=== PATIENT | female | born 1970 | race Caucasian/White ===

== ENCOUNTER → 2017-06-09 | Outpatient (CLI) | payer BC ==
--- NOTE | 2017-06-12 08:41 | MM ---
Reason for exam: screening (asymptomatic). Last mammogram was performed 4 years and 1 month ago. History: Taking hormonal contraceptives for 17 years 6 months beginning at age 16. Physical Findings: A clinical breast exam by your physician is recommended on an annual basis and results should be correlated with mammographic findings. MG 3D Screening Mammo W/Cad Bilateral CC and MLO view(s) were taken. Prior study comparison: May 16, 2013, bilateral digital screening mammo w/CAD. April 25, 2012, CAD bilateral diagnostic mammogram. There are scattered fibroglandular densities. No significant changes when compared with prior studies. ASSESSMENT: Benign, BI-RAD 2 RECOMMENDATION: Routine screening mammogram of both breasts in 1 year.
== END ==
LOC: RADMAMWWP 13:20
PROVIDERS: ATTEND Family Medicine
DX: Z12.31 Encounter for screening mammogram for malignant neoplasm of breast (principal)
CPT/HCPCS: 77063; G0202

== ENCOUNTER → 2017-08-24 | Outpatient (CLI) | payer BC ==
--- NOTE | 2017-08-24 16:45 | CT ---
EXAMINATION TYPE: CT brain wo con DATE OF EXAM: 08/24/2017 COMPARISON: NONE HISTORY: Patient complains of episodes of confusion and disorientation. CT DLP: 737.3 mGycm. Automated Exposure Control for Dose Reduction was Utilized. TECHNIQUE: CT scan of the head is performed without contrast. Ventricles and sulci appear normal. There is no mass effect nor midline shift. There is no sign of in tracranial hemorrhage. The calvarium is intact. CONCLUSION: Negative CT scan of the brain.
== END | disposition home or self-care (01) ==
LOC: RADCTMAIN 16:21
PROVIDERS: ATTEND Physician Assistant
DX: R41.0 Disorientation, unspecified (principal)
CPT/HCPCS: 70450

== ENCOUNTER 2021-11-12 10:43 | Day surgery (SDC) | payer BC, MEDICAID ==
[2021-11-10 15:14] VITALS: BMI 32.5
[~2021-11-12 10:43] MED LIST: LACTATED RINGERS 1,000 ML IV SCH
[2021-11-12 11:03] VITALS: TEMP 97.8
[2021-11-12] MEDS ORDERED: ONDANSETRON 4 MG/2 ML VIAL ONE (11:19)
[2021-11-12] MEDS ORDERED: PROPOFOL 10 MG/ML 20 ML VIAL IV ONE (12:41)
--- NOTE | 2021-11-12 12:57 | P.PCN ---
Date of Procedure: 11/12/21 Procedure(s) Performed: BRIEF HISTORY: Patient is a 51-year-old pleasant female scheduled for an elective colonoscopy as a part of screening for colon rectal neoplasia. PROCEDURE PERFORMED: Colonoscopy with snare polypectomy. PREOPERATIVE DIAGNOSIS: Screening for colon cancer. IV sedation per Anesthesia. PROCEDURE: After informed consent was obtained, the patient, was brought into the endoscopy unit. IV sedation was administered by Anesthesia under continuous monitoring. Digital rectal examination was normal. Initially the Olympus CF-160 flexible video colonoscope was then inserted in the rectum, gradually advanced into the cecum without any difficulty. Careful examination was performed as the scope was gradually being withdrawn. Ileocecal valve and the appendiceal orifice were visualized and appeared normal. Prep was excellent. Mucosa of the cecum normal. Ascending colon there was a 3 mm and 6 mm polyp removed by snare polypectomy. Rest of the, ascending colon, transverse colon, descending colon, sigmoid colon, and rectum appeared normal. Retroflexion was performed in the rectum and no lesions were seen. The patient tolerated the procedure well. IMPRESSION: 3 mm to 6 mm sessile ascending colon polyp status post polypectomy Rest of the colon appeared normal RECOMMENDATIONS: Findings of this examination were discussed with the patient as a family. She was advised to follow with the biopsy results. If the biopsy reveals adenoma she can have a repeat colonoscopy in 5 years
[2021-11-12 13:19] VITALS: BP 100/81; PULSE 68; RESP 18
== END 2021-11-12 13:29 | disposition home or self-care (01) ==
LOC: ORWHC2ENDO 10:43
PROVIDERS: ATTEND Internal Medicine Gastroenterology
DX: Z12.11 Encounter for screening for malignant neoplasm of colon (principal); D12.2 Benign neoplasm of ascending colon; Z79.899 Other long term (current) drug therapy
CPT/HCPCS: 88305; 45385; J2405; J2704